=== PATIENT | female | born 1995 | race Caucasian/White ===

== ENCOUNTER 2022-01-17 08:00 | Outpatient (RCR) | payer MEDICAID, SELFPAY ==
--- NOTE | 2022-01-17 09:00 | BH.SGPN.GN ---
Behaviors/Verbalizations/Mental Status: [] Eye contact is good. Motor activity is appropriate. Appearance is casual. Speech is Appropriate. Mood is anxious. Affect is congruent. Thoughts are linear and logical. No evidence of psychosis. Reviewed daily check in sheet and pt reports 3/5 for SI and 0/5 for intent. Completed [place] Suicide Screening prior to group. Client Response/Progress/Benefit: [] Pt participated at time during the group discussion. Attentive. Daily symptom tracker notes 4/5 for depression and 3/5 for anxiety. This was pt's first day in IOP and she briefly introduced herself. States that she is here because This was my secondary option to admitting myself to the hospital. Shared that she has significant daily anxiety and depression related to her struggles to function and maintain a job. States that she was just crying about his yesterday. Self-esteem issues. Reports erratic moods and impulsivity which impact her relationships as well as her jobs. My anxiety is so bad that I just stop going to work. Excessive expectations. No progress noted as this was her first day in IOP. Benefited from group support, encouragement, and feedback. Will continue in [facility] to maintain safety, increase healthy coping,and to improve functioning. Narrative Note: []
--- NOTE | 2022-01-17 10:06 | BH.COMM_ITS ---
Communication Note - Communication with Client Communication Note: Met with patient to complete initial paperwork. No sig nificant changes since pre-admission screening. Completed [place] Suicide Screener. Pt reports long-standing hx of passive thoughts of . Pt states she has thoughts of wanting to but states I would never do it. Client reports she has thoughts of wanting to but reports I'd never do it, I'm too scared. She reports that thoughts are fleeting lasting only minutes and she believes that she can control them. No hx of attempts. Protective factors. Future-oriented. In describing her thoughts they appears to be mostly passive (seconds-minutes) which occur several times a week. Client stated she has had thoughts of driving car into traffic, but states has never had intent or plan to act on thoughts. Client denies access to firearms or stockpile of medications. States she is able to maintain safety. Does not present as imminent risk to self. Consulted with Dr. Earl with plan to admit to IOP level of care with dx of F34.1.
--- NOTE | 2022-01-17 14:39 | BH.MTP ---
Master Treatment Plan - Patient Information Program Physician:: Dr. Earl Primary Therapist:: Emilee Collins, [facility] - Psychiatric Diagnoses Psychiatric Diagnoses:: 1. Bipolar 2 disorder F31.81. 2. Generalized anxiety disorder. 3. Strong cluster B traits Diagnosis Code(s):: F31.81 - Estimated LOS Estimated LOS (in weeks):: 6 Problem/Goal #1 - Problem/Goal #1 Stated Goal:: Client will decrease depressive symptoms, hopelessness, and agitation. Functional Impact: Patient is a 26-year-old , female with a history of bipolar 2 disorder and anxiety. The patient has a history of feeling increasing depression and a mental health crisis 2 to 3 weeks ago and has felt anxious, low and worthless over the fact that she cannot hold a job. The patient states she has had over 20 jobs since July 2021 and she quits after a week or so due to stress and boredom. She applied for disability 3 months ago but has not been approved yet. Besides depressed mood and sadness she admits to passive thoughts of . She denies suicidal ideation, homicidal ideation or plan for suicide. Endorses irritability, impulsivity, decreased concentration, anhedonia, apathy, low energy, and feelings of hopelessness and worthlessness. - Objectives Objective #1 Stated Objective: Client will learn and utilize 2-3 healthy coping strategies to manage depressive symptoms. Interventions: Therapist will utilize CBT techniques to assist client with understanding the connection between thoughts, feelings, and behaviors. Education will be provided on behavioral activation. Therapist will assist client in learning internal coping strategies to manage depressive symptoms, along with helping client identify triggers. Discharge Criteria: Client will have achieved this goal when can verbalize and has practiced at least 2 healthy coping strategies that successfully manage depressive symptoms. Target Date: 02/28/22 Review Date: 02/14/22 Objective #2 Stated Objective: Pt will decrease depressive symptoms AEB pt?s score on the DSM 5 cross-cutting measure and improve pt?s daily functioning. Interventions: Through groups and individual therapy, pt will be provided with education on cognitive distortions, mistaken beliefs, and identifying and combating negative self-talk. Therapist will assist pt with getting back into the activities she once enjoyed as well as increasing healthy coping strategies. Discharge Criteria: Pt will have met this goal when pt?s score on the DSM 5 cross cutting measure for depression has been decreased and per pt?s report daily functioning has improved. Target Date: 02/28/22 Review Date: 02/14/22 Problem/Goal #2 - Problem/Goal #2 Stated Goal:: Client will reduce overall frequency, intensity, and duration of the anxiety so that daily functioning is not impaired. Functional Impact: Patient is a 26-year-old , female with a history of bipolar 2 disorder and anxiety. The patient has a history of feeling increasing depression and a mental health crisis 2 to 3 weeks ago and has felt anxious, low and worthless over the fact that she cannot hold a job. The patient states she has had over 20 jobs since July 2021 and she quits after a week or so due to stress and boredom. She applied for disability 3 months ago but has not been approved yet. Besides depressed mood and sadness she admits to passive thoughts of . She denies suicidal ideation, homicidal ideation or plan for suicide. Endorses irritability, impulsivity, decreased concentration, anhedonia, apathy, low energy, and feelings of hopelessness and worthlessness. - Objectives Objective #1 Stated Objective: Client will learn and implement 2-3 calming skills to reduce overall anxiety and manage anxiety symptoms. Interventions: Therapist and group sessions will help client identify physiological warning signs of anxiety, increase awareness of thoughts that increase anxiety, and identify behaviors that reinforce anxious symptoms. Group and individual counseling will teach client calming skills to help manage anxious symptoms. Discharge Criteria: Client will have achieved this goal when can verbalize at least 2 calming skills and reports skills successfully help reduce anxious symptoms. Target Date: 02/28/22 Review Date: 02/14/22 Objective #2 Stated Objective: Pt will decrease anxious symptoms AEB pt?s score on the DSM 5 cross-cutting measure improve pt?s daily functioning. Interventions: Through groups and individual therapy, pt will be provided education about anxiety?s impact on body and common physiological reaction to anxiety. Therapist will teach pt appropriate breathing techniques and build healthy coping skills to manage daily anxieties. Discharge Criteria: Pt will have met this goal when pt?s score on the DSM 5 cross cutting measure for anxiety has been decreased and per pt?s report daily functioning has improved. Target Date: 02/28/22 Review Date: 02/14/22
--- NOTE | 2022-01-18 09:00 | BH.SGPN.GN ---
Behaviors/Verbalizations/Mental Status: []Pt alert and oriented, neatly dressed and groomed. Eye contact good. Motor activity appropriate. Speech within normal limits. Affect congruent, mood slightly anxious. Thoughts linear, logical, no signs of hallucinations or delusions. Reviewed pt?s symptom tracker, no risk for suicidal ideation, plan, or intent as of 01/18/22 Client Response/Progress/Benefit: [] Pt responded well to session, receptive to feedback. Pt reports feeling steady this morning and better than yesterday. Pt shared she had a job interview yesterday and it went well. Pt has been able to get jobs recently, but pt struggles to keep jobs due to avoidance per her report. Pt receptive to feedback from group on how to increase consistency at work. Pt's wins today were reaching out to her mother for support last night and going to the job interview. Pt appeared to benefit from connecting with peers and reflecting on wins. Will continue IOP tx to prevent decompensation, increase distress tolerance, and improve daily functioning. Narrative Note: []
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
--- NOTE | 2022-01-18 11:10 | BH.SGPN.GN ---
Behaviors/Verbalizations/Mental Status: []Client alert and oriented, casually dressed and groomed. Eye contact good. Motor activity appropriate. Speech within normal limits. Affect congruent, mood anxious. Thoughts linear, logical, no signs of hallucinations or delusions. Client Response/Progress/Benefit: []Client engaged during activity and contributed as group brainstormed ideas on how to cope with internal barriers that keep clients stuck from moving towards goals. Able to identify barriers to desired reality. Client identified wanting to work on overcoming the barrier of perfectionism by more consistently challenging herself to practice self-acceptance and reminding herself ?it?s okay if I?m not perfect?. Shared that this will help to reduce overall depression levels and promote self-confidence. Benefited from group by identifying obstacles and solutions to desired reality. Client will continue IOP tx to continue to promote use of healthy coping skills, improve relationships, prevent decompensation, and improve and overall functioning. Narrative Note: []
[2022-01-18 11:16] VITALS: BP 122/92; PULSE 91
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
--- NOTE | 2022-01-18 12:24 | BH.DR.ITP ---
Initial Treatment Plan Patient Information Visit Information: ADMISSION DATE: EXPECTED LOS: 4-6 weeks Problems/Symptoms Problem #1:: Mood instability Symptom:: Depression, sadness, worthlessness, guilt, passive thoughts of , decreased concentration, anhedonia, impulsivity, low motivation, biological disruption of sleep, low energy Problem #2:: Anxiety Symptom:: Worry, rumination, panic attacks
--- NOTE | 2022-01-20 10:00 | BH.SGPN.GN ---
Behaviors/Verbalizations/Mental Status: [] Eye contact is good. Motor activity is appropriate. Appearance is casual. Speech is Appropriate. Mood is depressed. Affect is congruent. Thoughts are linear and logical. No evidence of psychosis. Client Response/Progress/Benefit: [] Pt participated at times during the group discussion. Attentive during psychoeducation. Active during experiential activity. Participated during interactive discussion on aspects of fixed mindset. Group identified several aspects of fixed mindset which included; inflexible, belief that one cannot grow, absolute thinking, and all of one's skills, traits, and behaviors are set in stone and can't change. Group then identified examples of fixed thinking which included; Im never going to get better, I'm always going to be like this, I'm going to fail, I'm broken and will always be like this. Pt did well in experiential activity in which they were given a seemingly impossible task and were asked to identify fixed thoughts that arose. Benefited from increased understanding of fixed mindsets and how they can impact mental health. Will continue in IOP to maintain safety, improve functioning, and stabilize mood. Narrative Note: []
--- NOTE | 2022-01-20 11:00 | BH.SGPN.GN ---
Behaviors/Verbalizations/Mental Status: []Pt alert and oriented, casually dressed and groomed. Eye contact good. Motor activity appropriate. Speech within normal limits. Affect congruent-some inappropriate laughing, mood euthymic. Thoughts linear, logical, no signs of hallucinations or delusions. Client Response/Progress/Benefit: []Pt was an active participant in group discussion. Participated in their small group and was attentive during group psychoeducation on growth mindset vs fixed mindset. Pt and peers identified and shared examples of growth mindset. Pt participated in interactive discussion and practiced changing a fixed mindset thought to a growth mindset thought. Pt reframed his fixed thought of ?I I?m not good enough? and challenged this with ?it?s okay that I?m not perfect and I can find comfort in myself.? Benefited from increased awareness and insight of growth mindset and strategies to change from fixed mindset thoughts to growth mindset thoughts. Plan to continue in IOP to prevent decompensation, reduce impulsivity, and improve distress tolerance skills. Narrative Note: []
--- NOTE | 2022-01-23 09:00 | BH.SGPN.GN ---
Behaviors/Verbalizations/Mental Status: []Pt alert and oriented, neatly dressed and groomed. Eye contact good. Motor activity appropriate. Speech within normal limits. Affect congruent, mood euthymic. Thoughts linear, logical, no signs of hallucinations or delusions. Reviewed pt?s symptom tracker, no risk for suicidal ideation, plan, or intent as of 01/23/22 Client Response/Progress/Benefit: [] Pt responded well to session, providing supportive statements and connecting with peers. Pt reports feeling hopeful this morning despite recent stressors from yesterday. Pt shared her boyfriend dumped her yesterday and pt thought she would be more upset, but pt responded well. Pt admitted that she was dating him for his money, so not having that safety net is stressful, but pt is problem-solving by selling items. Pt appeared to benefit from reflecting on not lashing out at her ex-boyfriend and ability to problem-solve while stressed. Will continue IOP tx to reduce negative thinking patterns, improve distress tolerance skills, and increase mood stability. Narrative Note: []
--- NOTE | 2022-01-23 10:10 | BH.SGPN.GN ---
Behaviors/Verbalizations/Mental Status: []Client alert and oriented, casually dressed and groomed. Eye contact good. Motor activity appropriate. Speech normal. Affect congruent, mood anxious and euthymic, Thoughts linear, logical, no signs of hallucinations or delusions. Client Response/Progress/Benefit: []Client was engaged participant AEB listening attentively to others and providing input in group. Attentive during psychoeducation on communication styles. Assisted group with identifying barriers of effective communication which included: ?assumptions, shutting down, and mood.? Client identified they most often use aggressive communication with partners and passive communication styles with parents.? Client reports using aggressive communication within relationships has created several problems and prevented the relationship from being further nurtured. Reports trying to be more assertive within interpersonal relationships and willing to compromise. Benefited from increased awareness of different communication barriers, styles, and the importance of communicating effectively to improve mental wellness. Will continue IOP tx to prevent decompensation and maintain gains, as well as increase healthy communication, and stabilize functioning. Narrative Note: []
--- NOTE | 2022-01-23 10:10 | BH.SGPN.GN ---
Behaviors/Verbalizations/Mental Status: []Client alert and oriented, casually dressed and groomed. Eye contact good. Motor activity appropriate. Speech within normal limits. Affect congruent, mood anxious, Thoughts linear, logical, no signs of hallucinations or delusions Client Response/Progress/Benefit: []Client responded well to session AEB client listening attentively to others and providing input during group discussion on the pay offs and costs of the different communication styles. Client recognizes negative impact on her ability to get her needs met when she doesn't use healthy communication. Client did well in the activity to be assertive and provide direction to the group. Recognizes if group couldn?t actively listen to one another in the activity, they wouldn?t have been successful. Attentive during psychoeducation on interpersonal DBT skill ASHLEY. Client set a goal to work on being more open to negotiation in communicating with goal of trying to use more receptive of compromise with future partners. Client seemed to benefit from increasing awareness of healthy strategies to improve communication. Client will continue IOP tx to improve successful communication, improve mood stability and interpersonal relationships, and prevent decompensation. Narrative Note: []
--- NOTE | 2022-01-25 09:02 | BH.SGPN.GN ---
Behaviors/Verbalizations/Mental Status: []Pt alert and oriented, casually dressed and groomed. Eye contact good. Motor activity appropriate. Speech within normal limits. Affect congruent, mood euthymic and anxious. Thoughts linear, logical, no signs of hallucinations or delusions. Reviewed pt?s symptom tracker, no risk for suicidal ideation reported, denies plan, or intent as of 01/25/22 Client Response/Progress/Benefit: []Pt responded well to session, attentive and providing supportive feedback throughout. Pt reports feeling ?disconnected this morning as pt shared she was visiting a friend the night before and did not get much sleep. Expressed plans to practice self-care tonight by staying in and resting rather than staying out late again. Shared she has been struggling with allowing herself to be single and was receptive of several recommendations from the group on coping with loneliness associated. Identified positive as reaching out for help with finances from supports. Pt appeared to benefit from support of the group environment. Pt to continue IOP tx to continue to improve anxiety management skills, reduce use of unhealthy distractions, and further improve mood stability. Narrative Note: []
--- NOTE | 2022-01-25 10:10 | BH.SGPN.GN ---
Behaviors/Verbalizations/Mental Status: []Pt alert and oriented, casually dressed and grooming appears tended to. Eye contact good. Motor activity appropriate. Speech within normal limits. Affect congruent, mood anxious. Thoughts linear, logical, no signs of hallucinations or delusions. Client Response/Progress/Benefit: []Pt engaged throughout AEB taking notes, listening attentively, and providing input throughout. Attentive during psychoeducation and discussed the importance of goal-setting with the group. Group identified potential benefits of having goals to include: they motivate, increase self-confidence, provide a sense of accomplishment and give direction. Group also worked together to identify barriers to goal-setting which included; high expectations, negative thinking, and lack of motivation. Pt identified personal barriers to include negative thinking and goals being too much energy. Benefited from increased awareness of benefits and barriers to goal-setting. Pt will continue in IOP tx to increase mood stability, reduce impulsivity, and reduce negative thinking patterns. Narrative Note: []
--- NOTE | 2022-01-27 09:02 | BH.SGPN.GN ---
Behaviors/Verbalizations/Mental Status: []Eye contact fair, casually dressed, motor activity appropriate, speech normal rate and tone, mood euthymic, ful affect, thoughts linear and intact, no evidence of delusions or hallucinations. Reviewed pt's symptom tracker, no indication of suicidal ideation or intent. Client Response/Progress/Benefit: [] Client respond well to session as evidenced by her listening attentively to others and sharing thoughts and feelings. Client identified mental positive as getting her covid and flu shot yesterday. Client reported mental health positive as completing task of making phone calls that she had been avoiding. Client stated she was able to talk to her car loan bank and get her payment moved to a later date. Client stated current stressor is starting her new job on Sunday of next week because worried psychotic go well. Seem to benefit from support and feedback from peers. Client to continue IOP to increase confidence, challenge to her thoughts, and prevent decompensation. Narrative Note: []
--- NOTE | 2022-01-27 17:30 | BH.MDN ---
Multi-Disciplinary Note - Note 45-min Individual Time Started:: 10:35 Date: 01/27/22 Purpose of session/treatment goals addressed:: Purpose of session was to address goals 1 and 2 from MTP. Eye Contact:: Fair Motor Activity:: Restless Appearance:: Casual Speech:: Appropriate Mood:: Anxious, Depressed Affect:: Labile Thoughts:: Linear, Logical, No evidence of hallucinations/delusions noted Staff Interventions:: thought challenging, CBT techniques, mindfulness skills, strengths perspective, goal setting, taught coping skills - DBT yin mind Client Response:: Client reported her boyfriend broke up with her this week because he knew she was using him for his money. Client stated she understands why he broke up with her and agreed it was the best decision. Reported she feels bad she was with him for the wrong reasons and recognizes when starting relationships it's important to date someone she has feelings for, not for just what they can provide. Client stated she has had increased negative thoughts about herself because feels like a bad person. Able to somewhat challenge negative thinking with help from therapist. Client reported she is continuing her friendship with him and seems like that's the best choice for them. Client stated she did complete borderline personality workbook pages given from last session. Client reported she could connect with 7 of the 10 symptoms. Client reported her BPD symptoms significantly have impacted her ability to maintain relationships, friendships and jobs. Client stated she will end relationships quickly if she feels like the other person is going to leave her. client reported she would rather be the one to end a relationship first so doesn't feel abandoned. Client reported she also struggles with idealization and devaluation of people in her life. Client stated I will put my lovers on a pedestal one day then want to break up with them the next day. Client reported tearful when sharing she is already talking to another harriet through a dating bebo. Client stated she hasn't been single for more than one month since she was 13 years old. Reported she has had 5 boyfriends in the last 3 months. Client became tearful stating she has a hard time being single because feels unworthy unless she is dating someone. Client stated she knows this isn't healthy but states it feels too hard to be single. Reported self-worth was negatively impacted after her divorce because her family didn't see her in a positive light anmore since she ended marriage with a man they liked. Client created goal with therapist to start making at least one decision independently every day to help increase confidence. Identified being able to use breathing, walking, grounding, and talking to supports to help her use yin mind. Risks/Concerns:: Denies suicidal ideation, plan or intention to date. future focused. 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 Client continues to struggle with low self-worth which impacts ability to make decisions independently. Often compares self to sister which negatively impacts view of self. Client connects with borderline personality disorder traits which seems to be helping her recognize maladaptive behaviors. Client is to continue IOP to improve emotion regulation, challenge distorted thoughts and prevent decompensation. Time Stopped:: 11:25
== END 2022-01-27 23:59 ==
LOC: BHIOP 08:00
PROVIDERS: Referring Provider Psychiatry & Neurology Psychiatry; Visit Provider Psychiatry & Neurology Psychiatry
DX: F31.81 Bipolar II disorder (principal); F41.1 Generalized anxiety disorder; M79.7 Fibromyalgia; G43.909 Migraine, unspecified, not intractable, without status migrainosus; E66.9 Obesity, unspecified
CPT/HCPCS: 90792; H2012; H2020; S9480; T1002; 90834

== ENCOUNTER 2022-01-30 09:01 | Outpatient (RCR) | payer MEDICAID, SELFPAY ==
[2022-01-28 01:50] VITALS: BP 122/92; PULSE 91
--- NOTE | 2022-01-30 09:05 | BH.SGPN.GN ---
Behaviors/Verbalizations/Mental Status: []Pt alert and oriented, neatly dressed and groomed. Eye contact good. Motor activity appropriate. Speech within normal limits. Affect congruent, mood euthymic and anxious. Thoughts linear, logical, no signs of hallucinations or delusions. Reviewed pt?s symptom tracker, no risk for suicidal ideation, plan, or intent as of 01/30/22 Client Response/Progress/Benefit: []Pt responded well to session, engaged and providing supportive feedback. Pt reports feeling excited this morning as pt cleaned her room and she was able to regulate her emotions when she met up with her ex-boyfriend. Pt stated in the past she would have been tearful or irritable, but she was able to have a civil conversation with her ex-boyfriend. Pt starts a new job today and pt is anxiety and excited about this. Pt is anxious because she has a history of quitting jobs after a few weeks, but pt feels like this job will be different. The group gave pt encouragement which pt appeared to benefit from. Pt will continue IOP tx to promote mood stability, increase emotional regulation skills, and improve work-related functioning. Narrative Note: []
--- NOTE | 2022-01-30 10:10 | BH.SGPN.GN ---
Behaviors/Verbalizations/Mental Status: [] Eye contact is good. Motor activity is appropriate. Appearance is casual. Speech is Appropriate. Mood is anxious. Affect is congruent. Thoughts are linear and logical. No evidence of psychosis. Client Response/Progress/Benefit: [] Pt was an active participant in group discussion. Attentive AEB by note taking during psychoeducation on the types cognitive distortions, the CBT triangle, and automatic thoughts. This group was very information heavy as group was introduced to the various cognitive distortions however pt did participate in interactive discussions with peers in which they gave examples of certain cognitive distortions. Benefited from increased awareness and education on cognitive distortions and how they impact mental health. Will continue in IOP to prevent decompensation, increase healthy coping skills, and improve functioning. Narrative Note: []
--- NOTE | 2022-01-30 11:10 | BH.SGPN.GN ---
Behaviors/Verbalizations/Mental Status: []Eye contact is good. Motor activity is appropriate. Appearance is casual. Speech is Appropriate. Mood is euthymic. Affect is congruent. Thoughts are linear and logical. No evidence of psychosis. Client Response/Progress/Benefit: []Pt was an active participant in the group activity which involved working with peers to answer questions related to psychoeducation on cognitive distortions. Questions were posed in the fashion of Jeopardy and the categories included; Identifying the Cognitive Distortion, Ways to reframe cognitive distortions, Examples of cognitive distortions, and other areas related to cognitive distortions. This was an engaging way to help reinforce psychoeducation and to help client retain the information through examples and practicing. Pt was engaged in the game and with peers on collaborating to determine the answers. Client stated she has more awareness of how often she uses distorted thoughts and needs to work on reframing when she catches the distorted thought. Benefited from rehearsing ways to challenge/reframe cognitive distortions and by gaining increased insight into examples/definitions of 10 most common cognitive distortions. Will continue in IOP to continue use of healthy coping, improve idependence, and prevent decompensation.
--- NOTE | 2022-02-02 09:00 | BH.SGPN.GN ---
Behaviors/Verbalizations/Mental Status: []Eye contact good, casually dressed, motor activity appropriate, speech normal rate and tone, mood anxious, congruent affect, thoughts linear and intact, no evidence of delusions or hallucinations. Reviewed pt's symptom tracker, no indication of suicidal ideation or intent. Client Response/Progress/Benefit: [] Client respond well to session as evidenced by her listening attentively to others and openly sharing thoughts and feelings. Client stated feeling stressed because all my friends won't talk to me. Client stated there was drama between herself and two of her friends which has led to them not speaking to her. Client stated a mental health positive as reaching out to her mom to talk about the stressor, which she stated was helpful. Client reported additional positive as her first day at her new job went well yesterday and she is looking forward to going to work. Client seemed to benefit from support from peers. Client to continue IOP to stabilize mood, increase confidence, and prevent decompensation.
--- NOTE | 2022-02-02 11:12 | BH.SGPN.GN ---
Behaviors/Verbalizations/Mental Status: []Pt alert and oriented, casually dressed and groomed. Eye contact good. Motor activity appropriate. Speech within normal limits. Affect congruent, mood anxious. Thoughts linear, logical, no signs of hallucinations or delusions. Client Response/Progress/Benefit: []Pt receptive of session, engaged throughout AEB pt actively listening and contributing to discussion, as well as taking notes.? Pt participated in the experiential activity and did well to communicate ideas with peers and manage emotions. Pt and group processed how the emotions and perspective of the group impacted the activity. Pt reported her own anxiety made it difficult to believe in her own ability to help the group achieve their goal at times. Group worked together to identify different coping skills to help manage pitfalls. Pt identified pitfalls they struggle with such as lack of confidence in her own decisions and distorted thoughts. Pt plans to work on the pitfall of improving confidence in her decision making by beginning to practice making one small decision on her own each day. Benefited from identifying personal pitfalls and strategies to overcome these pitfalls. Will continue IOP tx to prevent decompensation, improve anxiety management, and increase the use of healthy coping skills. Narrative Note: []
--- NOTE | 2022-02-02 16:18 | BH.MDN ---
Multi-Disciplinary Note - Note 45-min Individual Time Started:: 10:05 Date: 02/02/22 Purpose of session/treatment goals addressed:: Purpose of session was to address goals 1 and 2 from MTP. Eye Contact:: Fair Motor Activity:: Appropriate Appearance:: Casual Speech:: Appropriate, Rapid - at times Mood:: Anxious Affect:: Full, Congruent Thoughts:: Logical, Racing, No evidence of hallucinations/delusions noted Staff Interventions:: thought challenging, CBT techniques, mindfulness skills, strengths perspective, goal setting Client Response:: Client reported she did talk with her friend that had stopped talking to her for a few days. Client stated she was able to communicate her side of the story and it seems it will work out with the friend. Client reported healthy coping skills she has been using includes: distraction, thinking about what she does have, talking with her mom, positive affirmations, and breathing skills. Client stated she needs to work on being more consistnet with using some of the skills. Client reported she is doing better with making decisions independently instead of asking others what she should do. Client reported she realizes she does overshare information for the shock factor. Client stated she isn't sure it is something she wants to change as of now. Client identified consequences of staying in chaos include: family thinking she is a fuck up, losing friends, and staying unstable. Client reported she would like to work on being more in the moment so she doesn't make rash and impulsive decisions. Client responded well to psychoeducation about healthy relationships and using healthy communication. Client stated she would like to work on being more mindful. Risks/Concerns:: Denies suicidal ideation, plan, or intention to date. future focused. Progress Toward Goals/Plan:: Client showing treatment progress with using healthy coping skills, managing stressors in healthier ways, and increased insight into how certain behaviors can negatively impact her mental health. Client has been working on making decisions independently to help improve her confidence and self-esteem. Client to continue IOP to consistently apply skills, challenge negativity, and prevent decompensation. Time Stopped:: 10:55
--- NOTE | 2022-02-06 10:10 | BH.SGPN.GN ---
Behaviors/Verbalizations/Mental Status: [] Client alert and oriented, casually dressed and groomed. Eye contact good. Motor activity appropriate. Speech within normal limits. Affect congruent, mood euthymic. Thoughts linear, logical, no signs of hallucinations or delusions. Client Response/Progress/Benefit: [] Client responded well to session, attentive and providing input throughout. Participated in discussion of things that can keep people feeling trapped or stuck in life including; avoidance, unhealthy coping, isolation, inconsistent boundaries, and surrounding self with toxic people. Group discussed the connection between thoughts, emotions, and behaviors as well as how negative thinking can keep a person stuck. Client attentive during psychoeducation on maintenance cycles. Client able to identify negative thoughts that have kept client stuck which included ?I'm not good enough and I can't do it. Client identified these thoughts lead her to hold herself back and not try new things. Appeared to benefit from gaining awareness of how negative thoughts reinforce mental health symptoms and keep people stuck. Will continue IOP tx to prevent decompensation, increase self image, and increase overall functioning. Narrative Note: []
--- NOTE | 2022-02-06 11:10 | BH.SGPN.GN ---
Behaviors/Verbalizations/Mental Status: [ ] Client alert and oriented, casually dressed and groomed. Eye contact good. Motor activity appropriate. Speech within normal limits. Affect congruent, mood euthymic. Thoughts linear, logical, no signs of hallucinations or delusions. Client Response/Progress/Benefit: [] Client responded well to session, contributing to discussion and providing supportive feedback. Client identified a negative thought that has kept her stuck. Client's thought was I'm not good enough. Client reported when she thinks this way, she feels hopeless, unworthy, and not confident. Client worked to reframe the thought by finding more rational, realistic ways to look at the thoughts and then processed within group setting. Client reframed the thought to I'm not good at certain things and good enough for some people.? Client stated she will use positive self-talk to continue challenging negative self-talk. Client appeared to benefit from practicing challenging negative thinking. Client will continue IOP tx to challenge cognitive distortions, increase healthy coping, and prevent decompensation. Narrative Note: []
--- NOTE | 2022-02-06 14:53 | BH.TPR ---
Treatment Plan Review Date of Admission:: 01/17/22 Date of Treatment Plan Review:: 02/06/22 Admitting Diagnoses:: 1. Bipolar 2 disorder F31.81. 2. Generalized anxiety disorder. 3. Strong cluster B traits Current Diagnoses:: 1. Bipolar 2 disorder F31.81. 2. Generalized anxiety disorder. 3. Strong cluster B traits Patient's Response to Treatment:: Pt has responded well to treatment AEB consistent treatment attendance, contributions during group discussions at times and application of skills outside treatment environment. Status of Current Problems and Symptoms: Ongoing problems. Pt continuing to struggle with low self-worth, difficulty making decisions independently, mild depressive symptoms, and moderate anxiety. Pt has been able to obtain employment since starting IOP and has maintained her job for over 2 weeks. Pt has connected with borderline personality disorder characteristics which has helped her recognize impact those symptoms have had on her difficulty maintaining relationships and jobs. Pt starting to put forth work into challenging perspective and decreasing impulsivity. Problem #1 Problem Name:: Mood instability Status of Goals:: obj 1 - partially met, ongoing work encouraged. Pt is able to identify healthy coping skills like opposite action, socialization, engaging in activities used to enjoy, and thought challenge. Pt struggles at times with consistently applying skills or making independent decisions. Obj 2 - met, ongoing work encouraged. Per pt's DSM 5 cross-cutting measure scores at review shows a 50% decrease in depression. Team Recommendations:: Team recommends pt to continue current goal and objectives to give time for pt to show consistent treatment progress. Problem #2 Problem Name:: Anxiety Status of Goals:: Obj 1- partially met, ongoing work encouraged. Pt is able to identify calming strategies like grounding, 5 senses, meditation, and belly breathing. pt struggles with in the moment use of skills. Obj 2 - met, ongoing work encouraged. Per pt's DSM 5 cross cutting measure, scores indicate a 54% reduction in anxious symptoms when compared to scores at intake. Team Recommendations:: Team recommends pt to continue current goal and objectives to give time for pt to show consistent treatment progress.
--- NOTE | 2022-02-07 09:00 | BH.SGPN.GN ---
Behaviors/Verbalizations/Mental Status: [] Eye contact is good. Motor activity is appropriate. Appearance is casual. Speech is Appropriate. Mood is euthymic. Affect is full. Thoughts are linear and logical. No evidence of psychosis. Reviewed daily check in sheet and no reports of SI. Client Response/Progress/Benefit: [] Pt was an active participant in group discussions. Attentive. Daily symptom tracker notes 05/04 for depression. Emotion for today is ?nervous?. She is apprehensive as ?things are going to well? and she believes something terrible will happen. Mental health win is that she has been going to work consistently for the past several weeks. This is a significant win as she has quit several jobs this past year due to her mental health. Mood is improved due to maintain job and she has also started a new relationship. Insight that she has ?trouble being alone?. Benefited from group support, encouragement, and feedback. Will continue in IOP to maintain safety, increase healthy coping, and prevent decompensation. Narrative Note: []
--- NOTE | 2022-02-07 15:28 | BH.MDN_ITS ---
Multi-Disciplinary Note - Note 30-min Individual Time Started:: 08:30 Date: 02/07/22 Purpose of session/treatment goals addressed:: Purpose of session was to address goal 1 from [facility] and create a small independent self-care goal. Eye Contact:: Good Motor Activity:: Appropriate Appearance:: Casual Speech:: Appropriate Mood:: Euthymic Affect:: Congruent Thoughts:: Linear, Logical, No evidence of hallucinations/delusions noted Staff Interventions:: thought challenging, motivational interviewing, psychoeducation on: - BPD relationship cycle, dialectical thinking, CBT techniques, goal setting Client Response:: Client reported feeling more positive today and in general. Attributes this to several external factors including a new relationship she is excited about, as well as continuing to enjoy her new job. Discussed that she has not told her sister about the new relationship as she is afraid she will grey roll man her for dating someone new so quickly after her previous relationship ended. Client shared that although she knows it is soon to be entering into a new relationship, she feels this person is different and that the relationship will in turn be different than those she has had in the past. Share she has never been single as an adult and has no desire to do so. Client did however express a desire to feel more comfortable with stability and the ?boring?. She shared struggling to maintain a relationship or job as she often is intensely invested at the start and then gets bored and ends it or quits. Noted she often takes an ?all or nothing? approach. Gave the example of either being a people pleaser and going out of her way to do things for others or saying ?no? to everything. Reports connecting with the BPD relationship cycle and how this manifest in her work life as well. Receptive of discussion on dialectical thinking and identified that she can care about people and still set boundaries when appropriate. Client went on to discuss feeling uncomfortable being alone is unsure of the last time she engaged in an activity without interacting with another person or looking at social media. Made connections between the need for constant interaction and difficulties in being okay with feeling comfortable w ith stability or ?down time?. Recognized that working to increase her comfort in engaging in a consistent independent activity without switching the task or starting over may help to improve comfort levels with stability. Reports plans to begin keeping a daily journal to work on this. Risks/Concerns:: Denies suicidal ideation, plan or intention to date. future focused. Progress Toward Goals/Plan:: Progress noted with client being able to maintain her new job the past two weeks and reports improved mood as well. Pt identified taking steps to reach out to healthy supports following interpersonal conflict the previous week. Pt able to identify several red flags to avoid in order to maintain consistency in her work and new relationship. Discussed wanting to improve comfort in having a consistent baseline and build healthier relationships as a result. Continues to struggle with negative self-talk and comparing, anxiety about being alone, and limited self-care. Receptive of creating small self-care goal to improve independence this week. Client is to continue IOP to improve emotion regulation, confidence, and prevent decompensation. Time Stopped:: 09:04
--- NOTE | 2022-02-15 10:10 | BH.SGPN.GN ---
Behaviors/Verbalizations/Mental Status: [] Eye contact is good. Motor activity is appropriate. Appearance is casual. Speech is Appropriate. Mood is euthymic. Affect is congruent. Thoughts are linear and logical. No evidence of psychosis. Client Response/Progress/Benefit: [] Pt participated at times during the group discussions. Attentive during psychoeducation AEB note-taking. Participated in interactive discussion amongst peers on the definition and examples of crisis. Engaged in conversations as peers identified unhealthy responses to crisis which included; substance use, avoidance, isolation, sleeping, risky behaviors, retail therapy, over-eating, etc. Pt identified her sharon signs to crisis which included overscheduling herself, decreased self-care, and suicidal thoughts. Benefited from increased of crisis and personal warning signs. Will continue in IOP to maintain safety, increase healthy coping, and prevent decompensation. Narrative Note: []
--- NOTE | 2022-02-15 12:04 | PCM.BH.PN ---
Progress Note Progress Note: History of Present Illness/Interim History: [] The patient is a 26-year-old, female with a history of bipolar disorder, anxiety and strong cluster B traits. She is seen in follow-up at the [facility] behavioral health IOP program and I last saw the patient 3 or 4 weeks ago. At that time her Effexor was increased 250 mg p.o. daily. She has been compliant with the medication's and has not noticed any side effects. She feels that her mood has improved on the Effexor and she states that she does not feel depressed at all now. She has started a new job at [employer] and feels that this job will work for her and she is able to function well at this job. She has decreased her caffeine use to 1 coffee a day and less than or equal to 1 energy drink a week. She feels she has learned valuable skills since starting the IOP program also. She states that her sister is being very supportive to her lately and this has also been helpful. The patient has been talking with a new boyfriend online and have been officially dating since February 04, 2022. She is trying not to cycle to relationships rapidly like she has in the past. She is enjoying being reconnected and living with her mother lately also. The patient denies passive thoughts of , suicidal ideation, plan for suicide, homicidal ideation, hallucinations or symptoms of renée. Current Psychiatric Medications: [] Lamictal 75 mg p.o. daily (will increase to 100 mg tomorrow); Effexor XR 150 mg p.o. daily (dose increased 3 to 4 weeks ago); Abilify 20 mg p.o. daily Mental Status Examination: [] The patient is a 26-year-old, obese female who appears normal for stated age and has a nose piercing and finger tattoo. She is casually dressed and groomed with good hygiene and is ambulatory with a normal gait. She is alert and oriented to person place and time and cooperative during the interview. She has no psychomotor agitation or retardation. Eye contact is good and speech is normal rate and rhythm and fluent with no pressure. Thought process is goal-directed and organized. Mood is euthymic. Affect is full and normal. Thought content: There is no evidence of passive thoughts of , suicidal ideation, homicidal ideation, plan for suicide, hallucinations or delusions. Reality testing is intact. Intelligence is average. Impulsivity is high. Judgment is intact. Insight is fair to good. Diagnoses: [] 1. Bipolar 2 disorder 2. Generalized anxiety disorder 3. Strong cluster B traits 4. Fibromyalgia and migraine headaches 5. Work and primary support issues Plan: [] The patient will continue the IOP program at [facility] as the structure, support, education and group therapy will hopefully prevent worsening of the patient's symptoms that might require hospitalization. The patient felt safe during the interview. And she states that if she does not feel safe she agrees to let us know or go to the emergency room. The risk, options, possible complications of the medications were discussed with the patient and she understands and accepts these. No medication changes were made today. The patient will continue to follow-up with her outpatient providers and I will see the patient in follow-up in 2 weeks. End of dictation
--- NOTE | 2022-02-15 17:58 | BH.MDN ---
Multi-Disciplinary Note - Note 45-min Individual Date: 02/15/22
--- NOTE | 2022-02-16 09:00 | BH.SGPN.GN ---
Behaviors/Verbalizations/Mental Status: [] Pt eye contact good, casually dressed, motor activity appropriate, speech normal rate and tone, mood euthymic, congruent affect, thoughts linear and intact, no evidence of delusions or hallucinations. Person detractor patient indicates no suicidal ideation, plan or intent. Client Response/Progress/Benefit: []Pt responded well to session AEB listening attentively to others and sharing thoughts and feelings. Client reported mental positive as being able to manage her thoughts and emotions while she is at work. Client stated she also has been really enjoying going to work and has been able to maintain her job for several weeks now. Client reported additional mental positive as making new friends to increase her positive social support network. Client identified current stressor is impulsive spending which leads to difficulty with paying her bills. Receptive to strategies discussed by the group on how to manage impulsivity. Stated benefit from support from peers. Client to continue IOP to maintain gains, decrease impulsivity, and prevent decompensation. Narrative Note: []
--- NOTE | 2022-02-16 10:05 | BH.SGPN.GN ---
Behaviors/Verbalizations/Mental Status: []Pt alert and oriented, casually dressed and groomed. Eye contact good. Motor activity appropriate. Speech within normal limits. Affect congruent, mood anxious euthymic. Thoughts linear, logical, no signs of hallucinations or delusions. Client Response/Progress/Benefit: []Pt participated during the group discussion, providing input and remaining attentive during psychoeducation. Participated in experiential activity. Pt contributed during interactive discussion on the consequences of unhealthy expression of emotions.? Worked with group to identify several consequences which included pushing people away, ?exploding,? and not getting needs met. Contributing during interactive discussion on common potholes to effectively communicating. Pt identified personal ones such as oversharing and making assumptions. Pt was able to relate and make connections between the experiential activity and the overall topic, reported experiencing anxiety and self-doubt, but managing it well thought positive self-talk and thought challenging. Benefited from increased awareness of how stress and emotions can impact one's ability to communicate. Will continue in IOP to manage sx of anxiety, continue to improve overall functioning, and further improve independent decision making. Narrative Note: []
--- NOTE | 2022-02-16 11:05 | BH.SGPN.GN ---
Behaviors/Verbalizations/Mental Status: []Pt alert and oriented, neatly dressed and groomed. Eye contact good. Motor activity appropriate. Speech within normal limits. Affect congruent, mood euthymic. Thoughts linear, logical, no signs of hallucinations or delusions. Client Response/Progress/Benefit: []Pt engaged in session AEB pt listening attentively to peers and providing input. Attentive during psychoeducation on 4 zones of regulation. Pt able to identify feelings and behaviors for each zone.? Pt identified coping skills one can use to support self in each zone. Pt stated belief that pt is in the yellow zone today, but pt shared ?that?s my baseline, I?m always anxious and excited. Pt reports she has to work right after this, so breathing and taking a break at work will help pt get out of the yellow zone today. Benefited from increased education on zones of regulation or stages of alertness for emotions and healthy coping skills to use for each zone. Pt will continue IOP tx to reinforce healthy coping skills and further improve mood stability. Narrative Note: []
--- NOTE | 2022-02-17 09:05 | BH.SGPN.GN ---
Behaviors/Verbalizations/Mental Status: []Eye contact good, casually dressed, motor activity appropriate, speech normal rate and tone, mood anxious and euthymic, congruent affect, thoughts linear and intact, no evidence of delusions or hallucinations. Reviewed pt's symptom tracker, denies suicidal ideation, plan, or intent as of this date 02/17/22. Client Response/Progress/Benefit: []Pt responded well to session, attentive and providing supportive feedback at times throughout. Pt reports feeling nervous this morning. Identified mental health ?wins? as making it through a long day of attending both group and work the previous date. Identified that this impacted her self-care and that she plans to make self-care a priority today. Additional win noted as having her grandfather help pt with meeting her financial needs for the week. Shared feeling appreciative of him. 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 Receptive of and appearing to benefit from supportive feedback and suggestions from the group. Connected with reminders that the constitution party is for socializing and spending time together, not the food. Pt to continue IOP tx to improve healthy boundary setting skills, prevent decompensation, and further improve mood stability. Narrative Note: []
--- NOTE | 2022-02-17 10:20 | BH.SGPN.GN ---
Behaviors/Verbalizations/Mental Status: []Pt alert and oriented, casually dressed and groomed. Eye contact good. Motor activity appropriate. Speech within normal limits. Affect congruent, mood euthymic. Thoughts linear, logical, no signs of hallucinations or delusions. Client Response/Progress/Benefit: []Pt was an active?participant in group discussion. Group worked together to identify benefits of healthy relationships which include; improves mental health, encouragement, motivation, accountability, validation, connection, and personal growth. Group identified factors that lead to unhealthy relationships which included; co-dependence, gaslighting, not addressing issues, name-calling, and not setting boundaries.?Pt?s personal factors were quick to jump into relationships, viewing stability as ?boring,? and ?ending relationships because they are too healthy.? Actively participated in group experiential activity and expressed ideas to group. Benefited from increased insight and awareness of benefits of healthy relationships and factors that contribute to unhealthy relationships. Will continue IOP tx to promote mood stability, increase distress tolerance skills, and improve work-related functioning. Narrative Note: []
--- NOTE | 2022-02-21 10:10 | BH.SGPN.GN ---
Behaviors/Verbalizations/Mental Status: []Pt alert and oriented, casually dressed and groomed. Eye contact good. Motor activity appropriate. Speech within normal limits. Affect congruent, mood euthymic. Thoughts linear, logical, no signs of hallucinations or delusions. Client Response/Progress/Benefit: []Pt was an active participant in group discussions. Attentive during psychoeducation. Participated with peers in experiential activity. Pt participated in an interactive discussion with peers in which they worked together to define what coping skills are. Indicates that she, like peers, struggle with replacing unhealthy coping skills. Group then identified unhealthy coping skills which included; avoidance, distraction, taking on others problems, and shutting down. Pt stated unhealthy coping skills are easier, habitual, and quick fixes. Pt admits that when she uses unhealthy coping skills it makes her problems worse. Benefited from increased awareness and education the benefits of have both internal and external coping skills. Will continue in IOP to help pt further improve mood stability, reduce negative thinking, and promote gains. Narrative Note: []
--- NOTE | 2022-02-21 14:54 | BH.MDN ---
Multi-Disciplinary Note - Note 30-min Individual Date: 02/21/22
--- NOTE | 2022-02-22 09:05 | BH.SGPN.GN ---
Behaviors/Verbalizations/Mental Status: [] Eye contact is good. Motor activity is appropriate. Appearance is casual. Speech is Appropriate. Mood is euthymic. Affect is full. Thoughts are linear and logical. No evidence of psychosis. Reviewed daily check in sheet and no reports of suicidal ideations or intent. Client Response/Progress/Benefit: [] Pt was an active participant in group discussion. Attentive. Provided appropriate feedback. Emotion for today is content. Mental health wins include ?going the doctor?. Shared that she has had a sinus infection for several days and was trying to just push through it ignoring how this was impacting her functioning and mental health. She got the issues addressed and view this as self-care. She has plans this weekend to go a Halloween democrat which is anxiety-producing however she is eager to work on goal of ?not sharing so much about myself?. Discussed why this is a goal and how oversharing impacts her mental health and relationships. ?Benefited from group support, encouragement, and feedback. Will continue in IOP to prevent decompensation, increase healthy coping, and improve functioning. Narrative Note: []
--- NOTE | 2022-02-22 11:15 | BH.SGPN.GN ---
Behaviors/Verbalizations/Mental Status: []Pt alert and oriented, casually dressed and groomed. Eye contact good. Motor activity appropriate. Speech within normal limits. Affect congruent, mood euthymic. Thoughts linear, logical, no signs of hallucinations or delusions Client Response/Progress/Benefit: []Pt responded well to session, engaged in the experiential activity and attentive throughout group processing. Pt reported fear of failure has kept pt from trying for ?better? jobs and career growth. Pt completed fear of failure worksheet and was able to identify thoughts and behaviors that reinforce personal fear of failure including avoidance, self-doubt, and fear of success. Pt participated in small group discussion regarding strategies to overcome fear of failure. Identified wanting to work on setting small goals and using mindfulness to ?find the maldonado.? Appeared to benefit from increased knowledge of strategies to combat fear of failure and gaining self-awareness. Pt will continue IOP tx to reinforce healthy coping skills, improve self-esteem, and improve work-related functioning. Narrative Note: []
--- NOTE | 2022-02-24 09:05 | BH.SGPN.GN ---
Behaviors/Verbalizations/Mental Status: []Eye contact good, casually dressed, motor activity appropriate, speech normal rate and tone, mood euthymic, congruent affect, thoughts linear and intact, no evidence of delusions or hallucinations. Reviewed pt's symptom tracker pt denies any SI plan, or intent as of this date 02/24/22. Client Response/Progress/Benefit: []Pt responded well to session, attentive and providing supportive statements. Pt reports feeling lit which pt reports means excited about the weekend. Pt shared her mood has improved and she has consistently been feeling better. Pt has been practicing more self-care and shared she did her makeup for the first time in a year. Pt also has been consistent at work and is enjoying her job. Pt appeared to benefit from reflecting on her progress and improved functioning. Pt's stressor today is that she is worried about her boyfriend's mother who is in the hospital. Pt will continue IOP tx to promote gains, further improve daily functioning, and increase distress tolerance skills. Narrative Note: []
--- NOTE | 2022-02-24 11:10 | BH.SGPN.GN ---
Behaviors/Verbalizations/Mental Status: []Pt alert and oriented, casually dressed and groomed. Eye contact good. Motor activity appropriate. Speech within normal limits. Affect full, mood euthymic. Thoughts linear, logical, no signs of hallucinations or delusions. Client Response/Progress/Benefit: []Pt was an active participant in group discussion. Attentive during psychoeducation on the Zones of Change which included the comfort zone, learning zone, and danger zone. Pt along with peers participated in interactive discussion regarding behaviors, thoughts, and feelings associated with each zone. Participated in group activity in which they developed a plan to take action on something they wished to change. Pt chose to take action on increase confidence with her decisions in which pt identified a SMART goal is every evening she will identify one decision she made throughout the day. Identified supports that pt needed is getting a journal and continuing to attend therapy/. Benefited from increased self-aware of zones of change and developing an action plan. Will continue in IOP to stabilize moods, improve confidence, and prevent decompensation.
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
--- NOTE | 2022-02-27 11:10 | BH.SGPN.GN ---
Behaviors/Verbalizations/Mental Status: []Pt alert and oriented, neatly dressed and groomed. Eye contact good. Motor activity appropriate. Speech within normal limits. Affect congruent, mood euthymic. Thoughts linear, logical, no signs of hallucinations or delusions. Client Response/Progress/Benefit: []Pt responded well to session AEB completing the resilience worksheet provided. Pt participated in the discussion of each resiliency component and worked cooperatively with group to identify strategies to enhance each of the components discussed. Pt reported doing well with the resilience traits of making connections, avoiding seeing crises as insurmountable, and hopeful outlook. Pt would like to continue to develop resilience trait of further increasing self-care and self-awareness to prevent future crises and pitfalls. Pt seemed to benefit from discussing strategies for improving personal resilience and identifying resilience traits pt already possesses. Progress noted as pt self-reported she can see growth and personal strengths. Will continue IOP tx to reinforce healthy coping skills and establish aftercare. Narrative Note: []
== END 2022-02-27 23:59 ==
LOC: BHIOP 09:01
PROVIDERS: Referring Provider Psychiatry & Neurology Psychiatry; Visit Provider Psychiatry & Neurology Psychiatry
DX: F31.81 Bipolar II disorder (principal); F41.1 Generalized anxiety disorder; M79.7 Fibromyalgia; G43.909 Migraine, unspecified, not intractable, without status migrainosus; E66.9 Obesity, unspecified
CPT/HCPCS: 99213; H2012; H2020; S9480; 90832; 90834

== ENCOUNTER 2022-02-28 08:08 | Outpatient (RCR) | payer MEDICAID, SELFPAY ==
[2022-02-28 00:38] VITALS: BP 122/92; PULSE 91
--- NOTE | 2022-03-01 09:00 | BH.SGPN.GN ---
Behaviors/Verbalizations/Mental Status: []Pt eye contact good, casually dressed, motor activity appropriate, speech normal rate and tone, mood euthymic, congruent affect, thoughts linear and intact, no evidence of delusions or hallucinations. Client Response/Progress/Benefit: []Pt responded well to session AEB pt listening attentively to others and sharing thoughts and feelings with group. Pt reported mental health positive as cleaning her entire room and cleaning her car. Pt stated she felt relief at seeing her room and car de-cluttered and clean. Pt reported additional positive as continue to cope with stressors in a healthy way. Pt stated stressor is losing her food stamps because she forgot to turn in a paper. Pt reported she has managed this stressor by reapplying for food stamps yesterday. Pt seemed to benefit from expressing thoughts and feelings. pt to continue IOP to maintain gains and prevent decompensation. Narrative Note: []
--- NOTE | 2022-03-01 10:08 | BH.SGPN.GN ---
Behaviors/Verbalizations/Mental Status: [] Client alert and oriented, casually dressed and groomed. Eye contact good. Motor activity appropriate. Speech within normal limits. Affect congruent, mood anxious and euthymic. Thoughts linear, logical, no signs of hallucinations or delusions. Client Response/Progress/Benefit: []Client responded well to session AEB sharing at times and listening attentively to others. Client provided examples of benefits of having social support. Client also participated in group discussion regarding the different kinds of supports in our safety net and the things that weaken or prevent us from using our supports. Client identified expecting supports to know what she needs before she communicates her actual needs as something that may weaken one?s support net. Client participated in experiential activity illustrating the importance of having multiple social supports. Client provided supportive feedback and problem solving throughout group activity. Client participated in group processing of the activity. Client appeared to benefit from increased knowledge of the benefits of social support and greater self-awareness. Will continue IOP treatment to continue increasing consistent use of skills, improve healthy boundary setting, and improve overall functioning. Narrative Note: []
--- NOTE | 2022-03-01 11:05 | BH.SGPN.GN ---
Behaviors/Verbalizations/Mental Status: []Pt alert and oriented, neatly dressed and groomed. Eye contact good. Motor activity appropriate. Speech within normal limits. Affect congruent, mood euthymic. Thoughts linear, logical, no signs of hallucinations or delusions. Client Response/Progress/Benefit: []Pt was an active participant throughout AEB contributing to discussion, providing personal examples, and taking notes.? Pt provided input during discussion on the types of support our supports can provide. Pt able to identify current support system and barriers that get in the way of using supports by drawing out their own support net. Personal barriers included not seeking help and mind-reading. Pt reported after identifying what type of supports they receive; they gained awareness that they could benefit from more informational and social supports. Pt identified steps to achieve this such as reaching out to her doctors and trying new hobbies to make friends. Pt seemed to benefit from identifying the type of support pt needs to work on improving. Pt recommended to continue IOP tx to reinforce healthy coping skills and establish aftercare. Narrative Note: []
--- NOTE | 2022-03-01 15:37 | BH.DS ---
Discharge Summary - Demographics Date of Admission:: 01/17/22 Discharge Date: 03/01/22 Presenting Problems at Admission:: Patient is a 26-year-old , female with a history of bipolar 2 disorder and anxiety. The patient has a history of feeling increasing depression and a mental health crisis 2 to 3 weeks ago and has felt anxious, low and worthless over the fact that she cannot hold a job. The patient states she has had over 20 jobs since July 2021 and she quits after a week or so due to stress and boredom. She applied for disability 3 months ago but has not been approved yet. Besides depressed mood and sadness she admits to passive thoughts of . She denies suicidal ideation, homicidal ideation or plan for suicide. Endorses irritability, impulsivity, decreased concentration, anhedonia, apathy, low energy, and feelings of hopelessness and worthlessness. Discharge Diagnoses:: 1. Bipolar 2 disorder F31.81. 2. Generalized anxiety disorder. 3. Strong cluster B traits Reason for Discharge:: Pt has made significant treatment progress and no longer meets criteria for [facility] level of care. - Treatment Progress During Treatment & Response: Per pt's DSM 5 scores at discharge scores indicate a 75% decrease in depression, 82% decrease in anxiety, and an 82% reduction in overall mental health symptoms when compared to pt's intake DSM 5 scores. Pt reporting improved mood stability, ability to maintain a job for over 4 weeks, improved interpersonal relationships, and increased independence. Pt responded well to treatment AEB consistent attendance, contributions during group discussions, and engagement in individual counseling. Issues Still to be Addressed:: Could benefit from continued reinforcement of healthy coping skills, continued work on challenging distorted thoughts, improve self-esteem and worth, and continued work on learning ways to manage cluster B traits. Discharge Recommendations/Instructions:: Pt is to continue medication management with Kate Brown at [facility] and Counseling with Laura at [facility]. Pt reported waiting to hear back from Laura for an appointment time. Discharge Handout: Complete Discharge Handout with client on aftercare options and continuity of care.
--- NOTE | 2022-03-03 09:10 | BH.SGPN.GN ---
Behaviors/Verbalizations/Mental Status: [] Eye contact is good. Motor activity is appropriate. Appearance is casual. Speech is Appropriate. Mood is euthymic. Affect is full. Thoughts are linear and logical. No evidence of psychosis. Reviewed daily check in sheet and no reports of suicidal ideations or intent. Client Response/Progress/Benefit: [] Pt was an active participant in group discussion. Attentive. Provided appropriate feedback. Emotion for today is nervous. Tearful at times as this is her last day in IOP level of care. I'm going to miss the support. Fear that she will regress or decompensate w/o IOP. Group was supportive and pointed out increase skills, confidence, and being more able to manage any distress when it arises. She shared that nuemrous obstacles and hurdles that she has overcome and is proud that her mood has been stable, she is in a healthy relationship, and has been consistently employed for several weeks. Groups during IOP that were most beneficical included those on healthy relationships and stress management. Benefited from group support, encouragement, and feedback. Will be discharged from IOP today. Narrative Note: []
--- NOTE | 2022-03-03 10:08 | BH.SGPN.GN ---
Behaviors/Verbalizations/Mental Status: []Pt alert and oriented, casually dressed and appropriately groomed. Eye contact good. Motor activity appropriate. Speech within normal limits. Affect congruent, mood euthymic. Thoughts linear, logical, no signs of hallucinations or delusions. Client Response/Progress/Benefit: []Pt was an engaged participant AEB providing input, listening to others, and taking notes. Participated in interactive group discussion on internal and external barriers to mental health progress. Pt described current reality as balancing on a mountain, leaning toward stability and leaving chaos but not quite completely stable yet. Reported desired reality is maintaining gains and continuing to get closer to consistent stability. Client shared personal barriers to desired realty include: distortions, inconsistent self-care, and fear of sustaining progress. Benefited from increased awareness of current barriers to progress as well as current/desired realities. Pt will d/c from IOP on this date and continue with outpatient tx to maintain gains, increase consistent use of healthy coping, and prevent decompensation. Narrative Note: []
--- NOTE | 2022-03-03 11:10 | BH.SGPN.GN ---
Behaviors/Verbalizations/Mental Status: []Pt alert and oriented, neatly dressed and groomed. Eye contact good. Motor activity appropriate. Speech within normal limits. Affect congruent, mood euthymic and anxious. Thoughts linear, logical, no signs of hallucinations or delusions. Client Response/Progress/Benefit: []Pt engaged during activity, encouraging peers, and contributed as group brainstormed ideas on how to cope with internal barriers that keep pts stuck from moving towards goals. Able to identify barriers to desired reality. Identified barriers to current reality to include: fear of failure, perfectionism, and fear of being ?okay?. Pt wants to work on overcoming the barrier of perfectionism by continuing to practice radical acceptance and challenging her all or nothing thoughts. Benefited from group by identifying obstacles and solutions to desired reality.? Pt will discharge from IOP tx today as pt has accomplished her tx goals and no longer meets criteria for IOP level of care. Narrative Note: []
== END 2022-03-03 13:19 | disposition home or self-care (01) ==
LOC: BHIOP 08:08
PROVIDERS: Referring Provider Psychiatry & Neurology Psychiatry; Visit Provider Psychiatry & Neurology Psychiatry
DX: F31.81 Bipolar II disorder (principal); F41.1 Generalized anxiety disorder
CPT/HCPCS: H2020